=== PATIENT | male | born 1990 ===

== ENCOUNTER 2017-10-24 14:20 | Emergency (ER) | payer MEDICAID ==
[2017-10-24 14:45] VITALS: BP 144/77; PULSE 76; RESP 16; TEMP 97.3; O2SAT 99
--- NOTE | 2017-10-24 16:11 | ED PDOC ---
Upper Extremity Pain/Injury Time Seen by Provider: 10/24/17 16:10 Chief Complaint (Nursing): Upper Extremity Problem/Injury Chief Complaint (Provider): WRIST INJURY History Per: Patient (27 Y/O MALE HERE WITH RIGHT WRIST PAIN AFTER BOXING. DENIES ANY HAND PAIN. NOTES PAIN WITH TWISTING WRIST.) Past Medical History Reviewed: Historical Data, Nursing Documentation, Vital Signs Vital Signs: Last Vital Signs Temp 97.3 F L 10/24/17 14:43 Pulse 76 10/24/17 14:43 Resp 16 10/24/17 14:43 BP 144/77 10/24/17 14:43 Pulse Ox 99 10/24/17 14:43 - Family History Family History: States: No Known Family Hx - Home Medications Home Medications: Ambulatory Orders Medication Instructions Recorded Naproxen 1 tab PO Q12 PRN #14 tab 10/24/17 - Allergies Allergies/Adverse Reactions: Allergies Allergy/AdvReac Type Severity Reaction Status Date / Time aspirin Allergy ANAPHYLAXIS Verified 10/24/17 14:46 shellfish derived Allergy ANAPHYLAXIS Verified 10/24/17 14:46 Review of Systems ROS Statement: Except As Marked, All Systems Reviewed And Found Negative Musculoskeletal: Positive for: Other (WRIST PAIN) Physical Exam - Reviewed Nursing Documentation Reviewed: Yes Vital Signs Reviewed: Yes - Physical Exam Appears: Positive for: Well, Non-toxic, No Acute Distress Head Exam: Positive for: ATRAUMATIC, NORMAL INSPECTION, NORMOCEPHALIC Skin: Positive for: Normal Color, Warm, DRY Eye Exam: Positive for: EOMI, Normal appearance, PERRL ENT: Positive for: Normal ENT Inspection Neck: Positive for: Normal, Painless ROM Cardiovascular/Chest: Positive for: Regular Rate, Rhythm Respiratory: Positive for: CNT, Normal Breath Sounds Gastrointestinal/Abdominal: Positive for: Normal Exam, Bowel Sounds, Soft Back: Positive for: Normal Inspection Extremity: Positive for: Normal ROM, Other (TENDERNESS ULNAR REGION) Neurologic/Psych: Positive for: Alert, Oriented - ECG O2 Sat by Pulse Oximetry: 99 - Progress ED Course And Treament: WRIST XRY: NO FX VOLAR SPLINT Disposition - Clinical Impression Clinical Impression: Wrist sprain - Patient ED Disposition Is Patient to be Admitted: No - Disposition Referrals: Natacha Martinez MD [Staff Provider] - Disposition: Routine/Home Disposition Time: 16:38 Condition: FAIR Prescriptions: Naproxen 1 tab PO Q12 PRN #14 tab PRN Reason: Pain, Moderate (4-7) Instructions: Wrist Sprain (ED) Forms: [facility] (Faroese), [facility] ED School/Work Excuse
--- NOTE | 2017-10-24 18:24 | RAD ---
PROCEDURE: Right Wrist Radiographs. HISTORY: Right wrist injury/pain COMPARISON: None. FINDINGS: BONES: Normal. No fracture. JOINTS: Normal. No dislocation. SOFT TISSUES: Normal. OTHER FINDINGS: None. IMPRESSION: Normal right wrist radiographs.
== END 2017-10-24 16:58 | disposition home or self-care (01) ==
LOC: H.ER 14:20
DX: S69.91XA Unspecified injury of right wrist, hand and finger(s), initial encounter (principal); X50.9XXA Other and unspecified overexertion or strenuous movements or postures, initial encounter; Y92.39 Other specified sports and athletic area as the place of occurrence of the external cause

== ENCOUNTER 2018-09-02 10:58 | Emergency (ER) | payer MEDICAID ==
[2018-09-02 11:11] VITALS: BMI 39.9
--- NOTE | 2018-09-02 12:20 | ED PDOC ---
HPI: Influenza Time Seen by Provider: 09/02/18 11:06 Chief Complaint: Flu-like Symptoms History Per: Patient Onset/Duration Of Symptoms: Days (2) Symptoms include: fever, bodyaches, cough Sick Contacts (Context): None Additional complaint(s):: Fever nonproductive cough bodyaches and left ear ache x 2 days Past Medical History Vital Signs: Last Vital Signs Temp 99.4 F 09/02/18 11:09 Pulse 113 H 09/02/18 11:09 Resp BP 139/82 09/02/18 11:09 Pulse Ox 96 09/02/18 11:09 - Medical History PMH: No Chronic Diseases - Family History Family History: States: Unknown Family Hx - Home Medications Home Medications: Ambulatory Orders Medication Instructions Recorded Naproxen 1 tab PO Q12 PRN #14 tab 10/24/17 Amoxicillin/Potassium Clav 1 tab PO TID #30 tab 09/02/18 [Augmentin 500 mg-125 mg] Neomycin/Polymyxin/Hydrocortis 3 drop OT TID #1 bottle 09/02/18 [Cortisporin Otic Susp] - Allergies Allergies/Adverse Reactions: Allergies Allergy/AdvReac Type Severity Reaction Status Date / Time aspirin Allergy ANAPHYLAXIS Verified 09/02/18 11:15 shellfish derived Allergy ANAPHYLAXIS Verified 09/02/18 11:15 Review of Systems ROS Statement: Except As Marked, All Systems Reviewed And Found Negative Constitutional: Positive for: Fever ENT: Positive for: Ear Pain Respiratory: Positive for: Cough Physical Exam - Reviewed Nursing Documentation Reviewed: Yes Vital Signs Reviewed: Yes - Physical Exam Appears: Positive for: Non-toxic, No Acute Distress Head Exam: Positive for: ATRAUMATIC, NORMAL INSPECTION, NORMOCEPHALIC Skin: Positive for: Normal Color, Warm, DRY Eye Exam: Positive for: EOMI, Normal appearance, PERRL ENT: Positive for: Other (Left canal erythemetous) Neck: Positive for: Normal, Painless ROM Cardiovascular/Chest: Positive for: Regular Rate, Rhythm Respiratory: Positive for: CNT, Normal Breath Sounds Gastrointestinal/Abdominal: Positive for: Normal Exam, Soft Back: Positive for: Normal Inspection Extremity: Positive for: Normal ROM Neurologic/Psych: Positive for: Alert, Oriented - ECG O2 Sat by Pulse Oximetry: 96 Disposition - Clinical Impression Clinical Impression: Upper respiratory infection, Otitis externa - Patient ED Disposition Is Patient to be Admitted: No Counseled Patient/Family Regarding: Studies Performed, Diagnosis, Need For Followup, Rx Given - Disposition Referrals: [facility] [Outside] Disposition: Routine/Home Disposition Time: 12:31 Condition: FAIR Prescriptions: Amoxicillin/Potassium Clav [Augmentin 500 mg-125 mg] 1 tab PO TID #30 tab Neomycin/Polymyxin/Hydrocortis [Cortisporin Otic Susp] 3 drop OT TID #1 bottle Instructions: Outer Ear Infection, Bacterial Upper Respiratory Infection, Adult Forms: [facility] (Telugu)
[2018-09-02 12:40] VITALS: BP 130/70; PULSE 91; RESP 16; TEMP 98.3; O2SAT 98
== END 2018-09-02 13:16 | disposition home or self-care (01) ==
LOC: H.ER 10:58
DX: J06.9 Acute upper respiratory infection, unspecified (principal); H60.90 Unspecified otitis externa, unspecified ear